=== PATIENT | male | born 1965 | race Caucasian/White ===

== ENCOUNTER 2016-09-11 19:01 | Emergency (ER) | payer MEDICARE, OTHER ==
--- NOTE | ~2016-09-11 | EKG ---
PATIENT: SWATI MILLER UNIT #: [id number] Ventricular Rate: 88 BPM Atrial Rate: 88 BPM P-R Interval: 156 ms QRS Duration: 100 ms Q-T Interval: 374 ms QTC Calculation(Bezet): 452 ms P [place]: 21 degrees Calculated R [place]: -28 degrees Calculated T [place]: 33 degrees Diagnosis Line: Normal sinus rhythm Diagnosis Line: Normal ECG Diagnosis Line: When compared with ECG of 25-MAR-2015 09:46, Diagnosis Line: Nonspecific T wave abnormality has replaced Diagnosis Line: inverted T waves in Inferior leads Diagnosis Line: Confirmed by JAYLIN JOHNSTON MD ([id number]) on 09/16/2016 Diagnosis Line: 2:39:42 PM INTERPRETING MD: PRESTON LOPEZ
--- NOTE | ~2016-09-11 | CR72 ---
[facility] A Service of [facility] RADIOLOGY TEXT RESULTS PATIENT: SWATI MILLER LOCATION: [facility] : 65 UNIT #: [id number] AGE: [address]: CHAYITO, ER DOCTOR SEX: M ORDER DR: [id number] [facility] [address] [place], [place] [address] [id number] E MR#: [id number] Acc #: [id number] NAME: SWATI MILLER : 1965 SEX: M STUDY DATE/TIME: 09/11/2016 19:31 UNIT: [facility] ROOM: STUDY DESCRIPTION: CR Chest Single View Portable Attending Physician: Marcella Er Ordering Physician: Ed Doc Ashtyn Moore Primary Care Physician: Suresh Willis M.D. MEDICAL IMAGING REPORT This report is preliminary unless electronic signature is present EXAM Portable chest INDICATIONS Chest pain and shortness of breath for 1 week. COMPARISON 03/29/2015 FINDINGS Lungs are well expanded. No acute-appearing infiltrate. Heart size normal. Visualized osseous structures are unremarkable. IMPRESSION No active disease. Dictated by... Cameron Bro M.D. THIS IS AN ELECTRONICALLY VERIFIED REPORT Cameron Bro M.D. at 09/16/2016 1:32 PM [place] TD: 09/12/2016 10:20 JOB #: [id number] MEDICAL IMAGING REPORT Page 1 of 1 COPY
[~2016-09-11 19:01] MED LIST: AMITRIPTYLINE H75 MG PO; ASPIRIN81 M2 PO; ASPIRINEC PO; BAYER ASPIRIN325 M1 PO; BETAMETHASONE D15 G3 TP; BETAMETHASONE D30 ML TP; CELEXA20 MG PO; COUMADIN10 MG PO; COUMADIN3 MG PO; COUMADIN6 MG PO; CRESTOR40 MG PO; DILANTIN KAPSE100 MG PO; FAMOTIDINE20 MG PO; FISH OIL 1,0001 CA2 DOB; FISH OIL 1,0001 CAP PO; FISH OIL 1,001000 M1 PO; FISH OIL500 M1 PO; IBUPROFEN800 MG PO; LORTAB 10-5001 EACH PO; PEPCID AC20 M2 PO; PLAVIX PO; PREDNISONE PO; TOPAMAX50 MG DOB; ZANAFLEX PO; ZANAFLEX4 M1 PO; ZESTRIL5 MG PO; ZOCOR PO; ZOFRAN PO
[2016-09-11 19:46] LABS: BASOPHIL# 0.1 X10e3 (0-0.3); BASOPHIL% 1.3 % (0-2.5); EOSINOPHIL# 0.2 X10e3 (0-0.7); EOSINOPHIL% 2.2 % (0.0-7.0); HEMATOCRIT 45.2 % (38.0-50.0); HEMOGLOBIN 14.8 gm/dL (13.0-16.0); LYMPHOCYTE# 2.2 X10e3 (1.0-3.5); LYMPHOCYTE% 29.4 % (17.0-45.0); MEAN CELL VOLUME 84.3 FL (83-96); MEAN CORPUSCULAR HEMOGLOBIN 27.6 PG (28-34); MEAN CORPUSCULAR HGB CONC 32.8 g/dL (30-36); MEAN PLATELET VOLUME 7.8 FL (6.5-11.5); MONOCYTE# 0.4 X10e3 (0-1.0); MONOCYTE% 5.9 % (3.0-12.0); NEUTROPHIL# 4.6 X10e3 (1.5-7.1); NEUTROPHIL% 61.2 % (40-75); PLATELET COUNT 162 X10e3 (140-420); RED BLOOD COUNT 5.36 X10e (3.90-5.60); RED CELL DISTRIBUTION WIDTH 15.5 % (11.0-15.5); WHITE BLOOD COUNT 7.5 X10e3 (4.0-10.5)
[2016-09-11 19:49] LABS: DIFF IND NO
[2016-09-11 20:06] LABS: ALBUMIN SERUM 4.3 g/dL (3.5-5.0); BILIRUBIN, DIRECT 0.1 mg/dL (0.0-0.2); BILIRUBIN,INDIRECT 0.9 mg/dL (0.0-0.9); BUN/CREATININE RATIO 11.11; CALCIUM SERUM 9.5 mg/dL (8.4-10.2); CREATININE SERUM 0.9 mg/dL (0.6-1.4); GLOM FILT RATE Estimated 98.5 mL/min (>60); POTASSIUM 3.9 mmol/L (3.5-5.1); PROTEIN TOTAL SERUM 7.9 g/dL (6.0-8.3)
[2016-09-11 20:07] LABS: POC - CKMB 1.1 ng/mL (0.0-7.9); POC - TROPONIN <0.05 ng/mL (<=0.05)
== END 2016-09-11 20:40 | disposition left against medical advice (07) ==
LOC: CED 19:01
DX: Z53.21 Procedure and treatment not carried out due to patient leaving prior to being seen by health care provider (principal)
CPT/HCPCS: 71010; 80048; 80076; 82553; 84484; 85025; 93005